=== PATIENT | male | born 1960 | race Caucasian/White ===

== ENCOUNTER 2024-10-07 17:11 | Observation (INO) | payer OTHER ==
[~2024-10-07] VITALS: Ht 170.2 cm; Wt 160.4 kg
[2024-10-07 17:39] LABS: BASOPHILS ABSOLUTE AUTO 0.07 K/mm3 (0.00-0.23); BASOPHILS PERCENT AUTO 1 % (0-2); EOSINOPHILS ABSOLUTE AUTO 0.31 K/mm3 (0.00-0.68); EOSINOPHILS PERCENT AUTO 4 % (0-6); Hematocrit 40.3 % (37.0-53.0); Hemoglobin 13.2 g/dL (13.5-17.5); IMMATURE GRAN ABSOLUTE AUTO 0.02 K/mm3 (0.00-0.10); IMMATURE GRAN PERCENT AUTO 0 % (0-1); LYMPHOCYTES ABSOLUTE AUTO 1.48 K/mm3 (0.84-5.20); LYMPHOCYTES PERCENT AUTO 20 % (21-46); MONOCYTES ABSOLUTE AUTO 0.43 K/mm3 (0.16-1.47); MONOCYTES PERCENT AUTO 6 % (4-13); Mean Corpuscular HGB 30.6 pg (26.0-34.0); Mean Corpuscular HGB Conc 32.8 g/dL (31.5-36.5); Mean Corpuscular Volume 93 fL (80-100); NEUTROPHILS ABSOLUTE AUTO 5.09 K/mm3 (1.96-9.15); NEUTROPHILS PERCENT AUTO 69 % (41-73); Platelet Count 229 K/mm3 (150-400); RDW Coefficient Variation 12.8 % (11.7-14.2); RDW Standard Deviation 43.8 fL (35.1-46.3); Red Blood Cell Count 4.32 M/mm3 (4.30-5.90)
[2024-10-07 17:59] LABS: Albumin, Blood 4.2 g/dL (3.4-5.0); Albumin/Globulin Ratio 1.1 (0.8-1.8); Bilirubin, Total 0.6 mg/dL (0.1-1.0); Bun/Creatinine Ratio 22.3 (12.0-20.0); Calcium, Blood 9.6 mg/dL (8.5-10.1); Creatinine, Blood 1.03 mg/dL (0.60-1.20); Globulin, Blood 3.8 g/dL (2.2-4.0); Potassium, Blood 4.4 mmol/L (3.5-5.5)
[2024-10-07] MEDS ORDERED: Nitroglycerin 0.4 MG SUBL SL ONE (21:45)
[2024-10-07] MEDS ORDERED: Acetaminophen 325 MG TABLET PO PRN (22:10)
[2024-10-07] MEDS ORDERED: Ondansetron 4 MG TAB PO PRN (22:10)
[2024-10-07] MEDS ORDERED: Nitroglycerin 0.4 MG SUBL SL PRN (22:10)
[2024-10-08 00:17] VITALS: BP 104/54
[2024-10-08] MEDS ORDERED: LEVSOD137 PO (00:36)
[2024-10-08] MEDS ORDERED: CLOP75 PO (00:38)
[2024-10-08] MEDS ORDERED: ASPI81CH PO (00:39)
[2024-10-08] MEDS ORDERED: NITR.4SL SL (00:40)
--- NOTE | 2024-10-08 00:55 | NUR ---
@0015 PT ARRIVED TO THE MEDICAL FLOOR RM #[id number]. PT INDEPENDENTLY TRANSFERRED FROM THE [facility] TO THE HOSPITAL BED. PT BROUGHT ALL HIS BELONINGS WITH HIM. BREAK NURSE RAJ MARKS COMPLETED THE ADMISSION ASSESSMENT, SKIN CHECK WITH THIS INSPECTOR POISING. PT IS A/O X4, AMBULATORY, CONTINENT, ABLE TO MAKE HIS NEEDS KNOWN. EDUCATED CAFE COOK LIGHT, FALL PRECAUTIONS AND SMOKING POLICY. PT REFUSED SCUDS. NON-SLIP SOCKS ON. BED AT THE LOWEST POSITION, CALL LIGHT W/I REACH. PT REPORTS 1/10 PAIN DURING ADMISSION. DENIES A NEED FOR PAIN MEDICATION. SNACK PROVIDED. NO ACUTE DISTRESS NOTED/REPORTED AT THIS TIME. TELE:NSR @80. RR EVEN, UNLABORED. PT RESTING COMFORTABLY WATCHING TV AT THIS TIME, HAVING A SNACK.
[2024-10-08 06:27] LABS: Alanine Aminotransfer (ALT/SGP 45 U/L (12-78); Albumin, Blood 3.4 g/dL (3.4-5.0); Alk Phos 125 U/L (50-136); Anion Gap 11 mmol/L (3-11); Aspartate Aminotrans (AST/SGOT 24 U/L (12-37); Bilirubin, Total 0.4 mg/dL (0.1-1.0); Blood Urea Nitrogen 28 mg/dL (8-24); Bun/Creatinine Ratio 28.3 (12.0-20.0); CHOL/HDL RATIO 4.1; CO2, Blood 25 mmol/L (21-32); Calcium, Blood 8.2 mg/dL (8.5-10.1); Chloride, Blood 106 mmol/L (98-108); Cholesterol 132 mg/dL (50-200); Creatinine, Blood 0.99 mg/dL (0.60-1.20); Globulin, Blood 3.3 g/dL (2.2-4.0); Glomerular Filtration Rate 85 (60-); Glucose, Blood 93 mg/dL (70-99); HDL Cholesterol 32 mg/dL (>39); LDL/HDL RATIO 1.8; Low Density Lipoprotein Chol 59 mg/dL (0-110); Potassium, Blood 3.9 mmol/L (3.5-5.5); Sodium, Blood 138 mmol/L (136-145); Thyroid Stimulating Hormone 0.689 uIU/mL (0.360-4.800); Total Protein, Blood 6.7 g/dL (6.4-8.2); Triglycerides 207 mg/dL (30-160); Very Low Density Lipoprot Chol 41 mg/dL (6-32)
[2024-10-08] MEDS ORDERED: ATOR40TA PO (08:22)
[2024-10-08] MEDS ORDERED: METO25ER PO (08:23)
[2024-10-08] MEDS ORDERED: LISI5 PO (08:23)
[2024-10-08 09:00] VITALS: BP 107/68
[2024-10-08] MEDS ORDERED: Metoprolol Succinate 25 MG TABCR PO SCH ×2 (09:00)
[2024-10-08] MEDS ORDERED: Docusate Sodium 100 MG Cap PO SCH (09:00)
[2024-10-08] MEDS ORDERED: Atorvastatin 40 MG Tab PO SCH (09:00)
[2024-10-08] MEDS ORDERED: Aspirin 81 MG Chew PO SCH (09:00)
[2024-10-08] MEDS ORDERED: Clopidogrel Bisulfate 75 MG Tab PO SCH (09:00)
[2024-10-08 13:01] VITALS: BP 132/73
[2024-10-08] MEDS ORDERED: JARDIANCE10 MG PO (14:53)
--- NOTE | 2024-10-08 16:44 | NUR ---
DISCHARGE PT DISCHARGED AT 1630. PT & EDUCATED ON NEW MEDICATIONS, LOW SAT DIET, FLUIDS RETRICTIONS OF 2L PER DAY, AND FOLLOW UP APPOINTMENTS NEEDED. PT AND ARE EAGER TO LEARN AND RECEPTIVE TO TEACHING. BOTH STATED NO FURTHER QUESTIONS AT TIME OF TEACHING. PT WHEELED OUT BY AIDE & DRIVEN HOME BY . NO ACUTE CHANGES IN ASSESSMENT PRIOR TO DC. ECHO COMPLETED PRIOR TO DC.
[2024-10-09] MEDS ORDERED: Levothyroxine Sodium 0.137 MG Tab PO SCH (06:00)
[2024-10-09] MEDS ORDERED: Lisinopril 5 MG Tab PO SCH (09:00)
== END 2024-10-08 16:30 | disposition home or self-care (01) ==
LOC: ER 17:11 → MEDS 17:12 → ERHOLD 17:12 → MEDS 10-08 00:12
PROVIDERS: Student in an Organized Health Care Education/Training Program; ADMIT Student in an Organized Health Care Education/Training Program
DX: I25.118 Atherosclerotic heart disease of native coronary artery with other forms of angina pectoris (principal); I21.4 Non-ST elevation (NSTEMI) myocardial infarction; I11.0 Hypertensive heart disease with heart failure; I50.20 Unspecified systolic (congestive) heart failure; Z95.5 Presence of coronary angioplasty implant and graft; Z87.891 Personal history of nicotine dependence
CPT/HCPCS: 36415; 71046; 80053; 80061; 83036; 83735; 84443; 84484; 85025; 93005; 93010; 93306; 99285-25; A9270; G0378

== ENCOUNTER 2025-01-12 10:02 | Day surgery (SDC) | payer OTHER ==
[2025-01-12] VITALS (12 sets, daily range): BP systolic 101–172; BP diastolic 64–85
[~2025-01-12] VITALS: Ht 175.3 cm; Wt 77.6 kg
[~2025-01-12 10:02] MED LIST: ASPI81CH PO; ATOR40TA PO; CLOP75 PO; DULO60 PO; FARXIGA10 MG PO; JARDIANCE10 MG PO; LEVSOD137 PO; LISI5 PO; METO25ER PO; NITR.4SL SL
[2025-01-12] MEDS ORDERED: Heparin Sodium 1000 Units/ML 10ML MDV ONE (12:05)
[2025-01-12] MEDS ORDERED: Verapamil HCL 2.5 MG/ML 2ML Injection ONE (12:05)
[2025-01-12] MEDS ORDERED: NS 250 ML IV ONE (12:06)
[2025-01-12] MEDS ORDERED: NS 1,000 ML IV ONE ×2 (12:06→12:13)
[2025-01-12] MEDS ORDERED: FentaNYL Citrate 50 MCG/ML 2 ML Injection ONE (12:13)
[2025-01-12] MEDS ORDERED: Midazolam HCl 1MG / ML 2ML Vial ONE (12:13)
--- NOTE | 2025-01-12 13:00 | NUR ---
PATIENT ARRIVED TO RECOVERY ROOM SITTING UPRIGHT IN RECLINER, CONVERSING APPROPRIATELY. RIGHT RADIAL TR BAND FULLY INFLATED. SITE C/D/I SOFT/NONTENDER, NO EVIDENCE OF BLEEDING. GOOD PLEUTH WAVE ON PULSE OX. VSS ON RA.
--- NOTE | 2025-01-12 13:22 | NUR ---
NEW PRESCRIPTION CALLED INTO PATIENT PREFERRED PHARMACY
--- NOTE | 2025-01-12 14:00 | NUR ---
PATIENT SITTING UPRIGHT IN RECLINER TOLREATING PO INTAKE WELL. VSS ON RA. PATIENT DENYING ANY PAIN. RIGHT RADIAL SITE C/D/I SOFT/NONTENDER, NO EVIDENCE OF BLEEDING. GOOD PLEUTH WAVE NOTED ON PULSE OXIMETRY. PATIENT COCNERSING APPORPRIATELY AND ABLE TO MAKE NEEDS KNOWN.
--- NOTE | 2025-01-12 14:30 | NUR ---
INITIAL 2 CC OF AIR REMVOED FROM RIGHT RADIAL TR BAND. SITE C/D/I SOFT/NONTENDER, NO EVIDENCE OF BLEEDING. PATIENT DNEYING ANY PAIN. VSS ON RA. PATIENT TOLERATING PO INTAKE WELL. PATIENT ABLE TO MAKE NEEDS KNOWN. WILL CONTINUE TO MONITOR.
--- NOTE | 2025-01-12 15:53 | NUR ---
CARE ASSUMED OF PATIENT AT 1500. AIR REMOVED FROM TR BAND OVER 40 MIN. ALL AIR REMOVED BY 1515. VERY SMALL AMT OF BLOOD NOTED, PRIOR NURSE STATES THIS WAS PRESENT. AREA SURROUNDING TR BAND SOFT W/O SWELLING OR HEMATOMA. DR ELLIOTT IN TO SEE PT AGAIN. PER DR ELLIOTT SURGEON WILL REACH OUT TO PT'S . PT OOB TO USE RESTROOM, ABBY WELL.
--- NOTE | 2025-01-12 17:08 | NUR ---
DISCUSSED D/C INSTRUCTIONS WITH PATIENT, PATIENT DRESSED AND BELONGINGS RETURNED, TR BAND INTACT AND REMOVED, OLD BLOOD REMOVED, SITE C/D/I NOW, AND PLACED CLOTH DOT. NEW BRACE APPLIED WELL, DENIES QUESTIONS/CONCERNS, DECLINED W/C, CALLED WHO IS ON WAY, AMBULATED WITH PT LONG TERM TO ENTRANCE, LEFT UNIT AT 1645. DISCUSSED ALL D/C INSTRUCTIONS WITH PATIENT PRIOR TO D/C.
== END 2025-01-12 19:36 | disposition home or self-care (01) ==
LOC: MHTC 10:02
DX: I25.10 Atherosclerotic heart disease of native coronary artery without angina pectoris (principal); I11.0 Hypertensive heart disease with heart failure; I50.20 Unspecified systolic (congestive) heart failure; I21.4 Non-ST elevation (NSTEMI) myocardial infarction; Z79.82 Long term (current) use of aspirin; Z79.899 Other long term (current) drug therapy; Z79.890 Hormone replacement therapy; Z88.8 Allergy status to other drugs, medicaments and biological substances
CPT/HCPCS: 76937; 93458; 99152; 99153; A9270; C1769; C1887; C1894; J1644; J2250; J3010; J7030; J7050; Q9967

== ENCOUNTER 2025-03-12 08:30 | Emergency (ER) | payer OTHER ==
[~2025-03-12] VITALS: Ht 172.7 cm; Wt 81.2 kg
[2025-03-12 09:02] LABS: BASOPHILS ABSOLUTE AUTO 0.06 K/mm3 (0.00-0.23); BASOPHILS PERCENT AUTO 1 % (0-2); EOSINOPHILS ABSOLUTE AUTO 0.23 K/mm3 (0.00-0.68); EOSINOPHILS PERCENT AUTO 3 % (0-6); Hematocrit 36.9 % (37.0-53.0); Hemoglobin 12.2 g/dL (13.5-17.5); IMMATURE GRAN ABSOLUTE AUTO 0.03 K/mm3 (0.00-0.10); IMMATURE GRAN PERCENT AUTO 0 % (0-1); LYMPHOCYTES ABSOLUTE AUTO 2.18 K/mm3 (0.84-5.20); LYMPHOCYTES PERCENT AUTO 32 % (21-46); MONOCYTES ABSOLUTE AUTO 0.64 K/mm3 (0.16-1.47); MONOCYTES PERCENT AUTO 10 % (4-13); Mean Corpuscular HGB Conc 33.1 g/dL (31.5-36.5); Mean Corpuscular Volume 92 fL (80-100); NEUTROPHILS ABSOLUTE AUTO 3.58 K/mm3 (1.96-9.15); NEUTROPHILS PERCENT AUTO 53 % (41-73); NRBC ABSOLUTE 0.00 K/mm3 (0.00-0.02); NRBC Auto 0.0 /100 WBC (0.0-0.2); Platelet Count 219 K/mm3 (150-400); RDW Coefficient Variation 13.1 % (11.7-14.2); RDW Standard Deviation 44.0 fL (35.1-46.3)
[2025-03-12 09:16] LABS: Alanine Aminotransfer (ALT/SGP 50.0 U/L (12-78); Albumin, Blood 3.7 g/dL (3.4-5.0); Albumin/Globulin Ratio 1.1 (0.8-1.8); Anion Gap 6.0 mmol/L (3-11); Aspartate Aminotrans (AST/SGOT 28.0 U/L (12-37); Bilirubin, Total 0.5 mg/dL (0.1-1.0); Blood Urea Nitrogen 20.0 mg/dL (8-24); CO2, Blood 28.0 mmol/L (21-32); Calcium, Blood 8.4 mg/dL (8.5-10.1); Chloride, Blood 108.0 mmol/L (98-108); Creatinine, Blood 0.99 mg/dL (0.60-1.20); Globulin, Blood 3.4 g/dL (2.2-4.0); Glucose, Blood 104.0 mg/dL (70-99); Potassium, Blood 4.2 mmol/L (3.5-5.5); Sodium, Blood 138.0 mmol/L (136-145); Total Protein, Blood 7.1 g/dL (6.4-8.2)
[2025-03-12] MEDS ORDERED: METOPROLOL SUCC25 MG PO (11:03)
== END 2025-03-12 12:22 | disposition home or self-care (01) ==
LOC: ER 08:30
PROVIDERS: Emergency Medicine
DX: K85.90 Acute pancreatitis without necrosis or infection, unspecified (principal); I10 Essential (primary) hypertension; E78.5 Hyperlipidemia, unspecified; Z87.891 Personal history of nicotine dependence; Z88.8 Allergy status to other drugs, medicaments and biological substances; Z79.82 Long term (current) use of aspirin; Z79.899 Other long term (current) drug therapy
CPT/HCPCS: 71046; 76705; 80053; 83690; 84484; 85025

== ENCOUNTER 2025-06-08 18:24 | Emergency (ER) | payer MEDICARE, OTHER ==
[~2025-06-08] VITALS: Ht 172.7 cm; Wt 81.7 kg
[~2025-06-08 18:24] MED LIST changes: +METOPROLOL SUCC25 MG PO
[2025-06-08] MEDS ORDERED: Ondansetron HCl 2 MG / ML 2ML Vial IV PRN (20:50)
[2025-06-08 20:51] LABS: BASOPHILS ABSOLUTE AUTO 0.05 K/mm3 (0.00-0.23); BASOPHILS PERCENT AUTO 1 % (0-2); EOSINOPHILS ABSOLUTE AUTO 0.16 K/mm3 (0.00-0.68); EOSINOPHILS PERCENT AUTO 3 % (0-6); Hematocrit 38.4 % (37.0-53.0); Hemoglobin 12.1 g/dL (13.5-17.5); IMMATURE GRAN ABSOLUTE AUTO 0.01 K/mm3 (0.00-0.10); IMMATURE GRAN PERCENT AUTO 0 % (0-1); LYMPHOCYTES ABSOLUTE AUTO 1.31 K/mm3 (0.84-5.20); LYMPHOCYTES PERCENT AUTO 21 % (21-46); MONOCYTES ABSOLUTE AUTO 0.54 K/mm3 (0.16-1.47); MONOCYTES PERCENT AUTO 9 % (4-13); Mean Corpuscular HGB Conc 31.5 g/dL (31.5-36.5); Mean Corpuscular Volume 92 fL (80-100); NEUTROPHILS ABSOLUTE AUTO 4.26 K/mm3 (1.96-9.15); NEUTROPHILS PERCENT AUTO 67 % (41-73); NRBC ABSOLUTE 0.00 K/mm3 (0.00-0.02); NRBC Auto 0.0 /100 WBC (0.0-0.2); Platelet Count 234 K/mm3 (150-400); RDW Coefficient Variation 14.1 % (11.7-14.2); RDW Standard Deviation 47.3 fL (35.1-46.3)
[2025-06-08 21:06] LABS: Alanine Aminotransfer (ALT/SGP 51.0 U/L (12-78); Albumin, Blood 3.6 g/dL (3.4-5.0); Albumin/Globulin Ratio 0.9 (0.8-1.8); Anion Gap 9.0 mmol/L (3-11); Aspartate Aminotrans (AST/SGOT 28.0 U/L (12-37); Bilirubin, Total 0.4 mg/dL (0.1-1.0); Blood Urea Nitrogen 23.0 mg/dL (8-24); CO2, Blood 24.0 mmol/L (21-32); Calcium, Blood 8.8 mg/dL (8.5-10.1); Chloride, Blood 109.0 mmol/L (98-108); Creatinine, Blood 1.04 mg/dL (0.60-1.20); Globulin, Blood 3.8 g/dL (2.2-4.0); Glucose, Blood 124.0 mg/dL (70-99); Potassium, Blood 4.3 mmol/L (3.5-5.5); Sodium, Blood 138.0 mmol/L (136-145); Total Protein, Blood 7.4 g/dL (6.4-8.2)
== END 2025-06-09 00:11 | disposition home or self-care (01) ==
LOC: ER 18:24
PROVIDERS: Emergency Medicine
DX: J20.9 Acute bronchitis, unspecified (principal); I11.0 Hypertensive heart disease with heart failure; E78.5 Hyperlipidemia, unspecified; Z79.82 Long term (current) use of aspirin
CPT/HCPCS: 71260; 80053; 83690; 83880; 84484; 85025; 85379; 93005; 93010; 99285-25; Q9967